=== PATIENT | male | born 1985 | race Caucasian/White ===

== ENCOUNTER 2023-09-27 06:35 | Inpatient (IN) | payer OTHER, MEDICAID ==
--- NOTE | 2023-09-27 06:46 | ED ---
General Adult HPI - General Source: patient, RN notes reviewed Mode of arrival: ambulatory Limitations: no limitations <Jimenez Prince - Last Filed: 09/27/23 06:45> - General Source: patient, RN notes reviewed, old records reviewed <Kenneth Powell - Last Filed: 09/27/23 15:09> - General Stated complaint: anxity nausea Time Seen by Provider: 09/27/23 06:46 - History of Present Illness Initial comments: 38-year-old male presents emergency Department chief complaint severe anxiety, nausea vomiting. Patient states he has not been able to hold anything down the last couple days. Patient states he feels dehydrated. Patient does have a history of anxiety. Denies any suicidal or homicidal. (Jimenez Prince) Patient is a 38-year-old male who originally presented as a quick note. Presents with anxiety, nausea and vomiting over the last few days. States when his anxiety is bad, he does have severe nausea and vomiting. Also endorses nonspecific suicidal ideations without any plans or attempts. Denies homicidal ideations, plans, attempts. Denies any visual or auditory hallucinations. No acute complaints at this time. Presents for further evaluation at this time. (Kenneth Powell) - Related Data Home Medications Medication Instructions Recorded Confirmed ALPRAZolam [Xanax] 0.25 mg PO TID PRN 09/27/23 09/27/23 Sertraline [Zoloft] 50 mg PO HS 09/27/23 09/27/23 Sertraline [Zoloft] 100 mg PO HS 09/27/23 09/27/23 traZODone HCL 150 mg PO HS 09/27/23 09/27/23 Allergies Allergy/AdvReac Type Severity Reaction Status Date / Time amoxicillin Allergy Rash/Hives Verified 09/27/23 12:08 bupropion [From Wellbutrin] AdvReac increased Verified 09/27/23 12:08 anxiety & suicidal ideations. Review of Systems ROS Other: All systems not noted in ROS Statement are negative. <Jimenez Prince - Last Filed: 09/27/23 06:45> ROS Other: All systems not noted in ROS Statement are negative. <Kenneth Powell - Last Filed: 09/27/23 15:09> ROS Statement: Those systems with pertinent positive or pertinent negative responses have been documented in the HPI. Review of Systems: CONST: Denies fever EYES: Denies blurry vision ENT: Denies nasal congestion C/V: Denies Chest pain RESP: Denies shortness of breath GI: Denies abdominal pain : Denies dysuria SKIN: Denies rash. MSK: Denies joint pain. NEURO: Denies headache PSYCH: Denies homicidal ideations/plans/attempts. Denies visual or auditory hallucinations. He endorses suicidal ideation. Denies plan or attempt. ([facility] Kenneth mckenzie) General Exam <Jimenez Prince - Last Filed: 09/27/23 06:45> <Kenneth Powell - Last Filed: 09/27/23 15:09> - General Exam Comments Initial Comments: Visual Physical Exam Vital signs reviewed General: Well-appearing, nontoxic, no acute distress. Head: Normocephalic, atraumatic Eyes: PERRLA, EOMI ENT: Airway patent Chest: Nonlabored breathing Skin: No visual rash, normal skin tone Neuro: Alert and oriented 3 Musculoskeletal: No gross abnormalities (Jimenez Prince) General: Appears in no acute distress. HEAD: Normal with no signs of head trauma. EYES: PERRLA, EOMI, conjunctiva normal, no discharge. ENT: Hearing grossly intact, normal oropharynx. Dry mucous membranes. RESPIRATORY: Clear breath sounds bilaterally. No wheezes, rales, or rhonchi. C/V: Regular rate and rhythm. S1 and S2 auscultated, no edema, peripheral pulses 2+ and intact throughout ABD: Abd is soft, nontender, nondistended EXT: Normal range of motion, no obvious deformity SKIN: No rashes or lesions observed on exposed skin. NEURO: Alert and oriented x 4. (Kenneth Powell) Course Vital Signs 09/27/23 09/27/23 07:35 11:38 Temperature 97.7 F 98.7 F Pulse Rate 89 113 H Respiratory 18 20 Rate Blood Pressure 138/92 141/101 O2 Sat by Pulse 98 97 Oximetry Medical Decision Making <Jimenez Prince - Last Filed: 09/27/23 06:45> - Lab Data Result diagrams: 09/27/23 11:40 09/27/23 11:40 <Kenneth Powell - Last Filed: 09/27/23 15:09> - Medical Decision Making I completed the quick note portion of this chart signed Jimenez Prince PA-C (Jimenez Prince) Was pt. sent in by a medical professional or institution ([facility], COLLEGE ARCHIVIST, urgent care, hospital, or usp...) When possible be specific @ -No Did you speak to anyone other than the patient for history (EMS, parent, family, police, friend...)? What history was obtained from this source @ -No Did you review nursing and triage notes (agree or disagree)? Why? @ -I reviewed and agree with nursing and triage notes, and agree except for the fact that patient is now stating he has had been having suicidal ideations. Were old charts reviewed (outside hosp., previous admission, EMS record, old EKG, old radiological studies, urgent care reports/EKG's, usp records)? Report findings @ -No old charts were reviewed Differential Diagnosis (chest pain, altered mental status, abdominal pain women, abdominal pain men, vaginal bleeding, weakness, fever, dyspnea, syncope, headache, dizziness, GI bleed, back pain, seizure, CVA, palpatations, mental health, musculoskeletal)? @ -Differential Mental Health Depression, anxiety, bipolar, psychosis, schizophrenia, borderline personality, situational depression, adjustment disorder, behavioral disorder, brain tumor, malingering, substance abuse, encephalopathy, medication reaction, dementia, hypothyroidism, degenerative neurologic disorder, lupus.... This is not meant to be all-inclusive list EKG interpreted by me (3pts min.). @ -None done X-rays interpreted by me (1pt min.). @ -None done CT interpreted by me (1pt min.). @ -None done U/S interpreted by me (1pt. min.). @ -None done What testing was considered but not performed or refused? (CT, X-rays, U/S, labs)? Why? @ -None What meds were considered but not given or refused? Why? @ -None Did you discuss the management of the patient with other professionals (professionals i.e. [facility] Morales, COLLEGE ARCHIVIST, lab, RT, psych nurse, social work specialist, construction site manager, teacher, chief resource officer, supervisor case loading)? Give summary @ -No Was smoking cessation discussed for >3mins.? @ -No Was critical care preformed (if so, how long)? @ -No Were there social determinants of health that impacted care today? How? (Homelessness, low income, unemployed, alcoholism, drug addiction, transportation, low edu. Level, literacy, decrease access to med. care, [facility], rehab)? @ -No Was there de-escalation of care discussed even if they declined (Discuss DNR or withdrawal of care, Hospice)? DNR status @ -No What co-morbidities impacted this encounter? (DM, HTN, Smoking, COPD, CAD, Cancer, CVA, ARF, Chemo, Hep., AIDS, mental health diagnosis, sleep apnea, morbid obesity)? @ -None Was patient admitted / discharged? Hospital course, mention meds given and route, prescriptions, significant lab abnormalities, going to OR and other pertinent info. @ -Based on the patient's presentation and physical exam, presents with anxiety and multiple episodes of nausea and vomiting. We'll obtain basic labs. Patient was placed in green scrubs due to suicidal ideations. Sitter was ordered. Patient was administered IV Zofran, fluids, Ativan. Vital signs within acceptable limits. Patient's labs are relatively nonspecific, dehydration. Positive marijuana and UDS. BAT is 0. At this time, patient is medically cleared for evaluation by psychiatry. Disposition is pending psychiatric evaluation. EPS was notified. Discussed with the by mouth some patient will be admitted to inpatient psychiatry. Undiagnosed new problem with uncertain prognosis? @ -No Drug Therapy requiring intensive monitoring for toxicity (Heparin, Nitro, Insulin, Cardizem)? @ -No Were any procedures done? @ -No Diagnosis/symptom? @ -Anxiety, suicidal ideation, nausea and vomiting Acute, or Chronic, or Acute on Chronic? @ -Acute Uncomplicated (without systemic symptoms) or Complicated (systemic symptoms)? @ -complicated Side effects of treatment? @ -No Exacerbation, Progression, or Severe Exacerbation? @ -No Poses a threat to life or bodily function? How? (Chest pain, [place], [place], pneumonia, PE, COPD, DKA, ARF, appy, cholecystitis, CVA, Diverticulitis, Homicidal, Suicidal, threat to staff... and all critical care pts) @ -Yes, secondary to the suicidal ideations. (Kenneth Powell) - Lab Data Lab Results 09/27/23 09/27/23 09/27/23 Range/Units 07:39 11:40 11:40 WBC 13.2 H (3.8-10.6) k/uL RBC 5.88 (4.30-5.90) m/uL Hgb 17.8 H (13.0-17.5) gm/dL Hct 51.6 (39.0-53.0) % MCV 87.8 (80.0-100.0) fL MCH 30.4 (25.0-35.0) pg MCHC 34.6 (31.0-37.0) g/dL RDW 12.1 (11.5-15.5) % Plt Count 409 (150-450) k/uL MPV 6.9 Neutrophils % 84 % Lymphocytes % 9 % Monocytes % 5 % Eosinophils % 0 % Basophils % 1 % Neutrophils # 11.1 H (1.3-7.7) k/uL Lymphocytes # 1.1 (1.0-4.8) k/uL Monocytes # 0.7 (0-1.0) k/uL Eosinophils # 0.1 (0-0.7) k/uL Basophils # 0.1 (0-0.2) k/uL Sodium 141 (137-145) mmol/L Potassium 4.1 (3.5-5.1) mmol/L Chloride 102 (98-107) mmol/L Carbon Dioxide 17 L (22-30) mmol/L Anion Gap 22 mmol/L BUN 15 (9-20) mg/dL Creatinine 0.86 (0.66-1.25) mg/dL Est GFR (CKD-EPI)AfAm >90 (>60 ml/min/1.73 sqM) Est GFR (CKD-EPI)NonAf >90 (>60 ml/min/1.73 sqM) Glucose 91 (74-99) mg/dL Calcium 10.1 (8.4-10.2) mg/dL Urine Opiates Screen (NotDetected) Ur Oxycodone Screen (NotDetected) Urine Methadone Screen (NotDetected) Ur Barbiturates Screen (NotDetected) U Tricyclic Antidepress (NotDetected) Ur Phencyclidine Scrn (NotDetected) Ur Amphetamines Screen (NotDetected) U Methamphetamines Scrn (NotDetected) U Benzodiazepines Scrn (NotDetected) Urine Cocaine Screen (NotDetected) U Marijuana (THC) Screen (NotDetected) Influenza Type A (PCR) Not Detected (Not Detectd) Influenza Type B (PCR) Not Detected (Not Detectd) RSV (PCR) Not Detected (Not Detectd) SARS-CoV-2 (PCR) Not Detected (Not Detectd) 09/27/23 Range/Units 13:28 WBC (3.8-10.6) k/uL RBC (4.30-5.90) m/uL Hgb (13.0-17.5) gm/dL Hct (39.0-53.0) % MCV (80.0-100.0) fL MCH (25.0-35.0) pg MCHC (31.0-37.0) g/dL RDW (11.5-15.5) % Plt Count (150-450) k/uL MPV Neutrophils % % Lymphocytes % % Monocytes % % Eosinophils % % Basophils % % Neutrophils # (1.3-7.7) k/uL Lymphocytes # (1.0-4.8) k/uL Monocytes # (0-1.0) k/uL Eosinophils # (0-0.7) k/uL Basophils # (0-0.2) k/uL Sodium (137-145) mmol/L Potassium (3.5-5.1) mmol/L Chloride (98-107) mmol/L Carbon Dioxide (22-30) mmol/L Anion Gap mmol/L BUN (9-20) mg/dL Creatinine (0.66-1.25) mg/dL Est GFR (CKD-EPI)AfAm (>60 ml/min/1.73 sqM) Est GFR (CKD-EPI)NonAf (>60 ml/min/1.73 sqM) Glucose (74-99) mg/dL Calcium (8.4-10.2) mg/dL Urine Opiates Screen Not Detected (NotDetected) Ur Oxycodone Screen Not Detected (NotDetected) Urine Methadone Screen Not Detected (NotDetected) Ur Barbiturates Screen Not Detected (NotDetected) U Tricyclic Antidepress Not Detected (NotDetected) Ur Phencyclidine Scrn Not Detected (NotDetected) Ur Amphetamines Screen Not Detected (NotDetected) U Methamphetamines Scrn Not Detected (NotDetected) U Benzodiazepines Scrn Not Detected (NotDetected) Urine Cocaine Screen Not Detected (NotDetected) U Marijuana (THC) Screen Detected H (NotDetected) Influenza Type A (PCR) (Not Detectd) Influenza Type B (PCR) (Not Detectd) RSV (PCR) (Not Detectd) SARS-CoV-2 (PCR) (Not Detectd) Disposition <Jimenez Prince - Last Filed: 09/27/23 06:45> <Kenneth Powell - Last Filed: 09/27/23 15:09> Clinical Impression: Suicidal ideations, Anxiety, Nausea and vomiting Disposition: ADMITTED IP TO THIS HOSP Condition: Stable
[2023-09-27] MEDS ORDERED: LORazepam 2 MG/ML INJ IV STA (11:45)
[2023-09-27 11:54] LABS: Basophils # (A) 0.1 k/uL (0-0.2); Basophils % (A) 1 %; Eosinophils # (A) 0.1 k/uL (0-0.7); Eosinophils % (A) 0 %; HCT 51.6 % (39.0-53.0); HGB 17.8 gm/dL (13.0-17.5); Lymphocytes # (A) 1.1 k/uL (1.0-4.8); Lymphocytes % (A) 9 %; MCH 30.4 pg (25.0-35.0); MCHC 34.6 g/dL (31.0-37.0); MCV 87.8 fL (80.0-100.0); Mean Platelet Volume 6.9; Monocytes # (A) 0.7 k/uL (0-1.0); Monocytes % (A) 5 %; Neutrophils # (A) 11.1 k/uL (1.3-7.7); Neutrophils % (A) 84 %; Platelet Count 409 k/uL (150-450); RBC 5.88 m/uL (4.30-5.90); RDW 12.1 % (11.5-15.5); WBC 13.2 k/uL (3.8-10.6)
[2023-09-27 12:09] LABS: African American GFR (CKD) >90 (>60 ml/min/1.73 sqM); Anion Gap 22 mmol/L; Blood Urea Nitrogen 15 mg/dL (9-20); Calcium 10.1 mg/dL (8.4-10.2); Carbon Dioxide 17 mmol/L (22-30); Chloride 102 mmol/L (98-107); Glucose 91 mg/dL (74-99); Non-African American GFR(CKD) >90 (>60 ml/min/1.73 sqM); Potassium 4.1 mmol/L (3.5-5.1); Sodium 141 mmol/L (137-145)
[2023-09-27] MEDS ORDERED: ONDANSETRON 4 MG/2 ML VIAL IVP STA (13:28)
[2023-09-27] MEDS ORDERED: SODIUM CHLORIDE 0.9% 1,000 ML IV STA (13:28)
[2023-09-27 13:53] LABS: Amphetamine Screen,Urine Not Detected (NotDetected); Barbiturate Screen,Urine Not Detected (NotDetected); Benzodiazepines Screen,Urine Not Detected (NotDetected); Cocaine Screen,Urine Not Detected (NotDetected); Methadone Screen, Urine Not Detected (NotDetected); Opiate Screen,Urine Not Detected (NotDetected); Oxycodone Screen, Urine Not Detected (NotDetected); Phencyclidine Screen,Urine Not Detected (NotDetected); Tricyclic Antidepressant,Urine Not Detected (NotDetected); Urn Cannabinoid Scrn Detected (NotDetected)
[2023-09-27] MEDS ORDERED: MAGNESIUM HYDROXIDE 2,400 MG/30 ML CUP PO PRN (15:51)
[2023-09-27] MEDS ORDERED: MAG HYDROX/AL HYDROX/SIMETH 30 ML CUP PO PRN (15:51)
[2023-09-27] MEDS ORDERED: ACETAMINOPHEN TAB 325 MG TAB PO PRN (15:51)
[2023-09-27] MEDS ORDERED: HALOPERIDOL LACTATE 5 MG/ML 1 ML VIAL IM PRN (15:53)
[2023-09-27] MEDS ORDERED: haloperidoL 5 MG TAB PO PRN (15:53)
[2023-09-27] MEDS ORDERED: LORazepam 2 MG/ML INJ IM PRN (15:53)
[2023-09-27] MEDS: LORazepam 1 MG TAB PO PRN (17:19)
[2023-09-27] MEDS: SERTRALINE 100 MG TAB PO SCH (20:38)
[2023-09-27] MEDS: traZODone HCL 100 MG TAB PO SCH (20:38)
[2023-09-27] MEDS: SERTRALINE 50 MG TAB PO SCH (20:38)
[2023-09-28 03:19] LABS: Appearance,Urine Clear (Clear); Bilirubin,Urine Negative (Negative); Blood,Urine Negative (Negative); Color,Urine Yellow; Glucose,Urine (UA) Negative (Negative); Ketones,Urine 4+ (Negative); Leukocyte Esterase,Urine Negative (Negative); Mucus,Urine Many /hpf; Nitrite,Urine Negative (Negative); PH, Urine 5.5 (5.0-8.0); Protein,Urine 1+ (Negative); RBC,Urine 1 /hpf (0-5); Specific Gravity,Urine 1.042 (1.001-1.035); Uric Acid Crystals,Urine Few /hpf; Urobilinogen,Urine <2.0 mg/dL (<2.0); WBC,Urine 3 /hpf (0-5)
[2023-09-28] MEDS ORDERED: ALBUTEROL INHALER 60 PUFF/8 GM INHALER (MHU) INHALATION PRN (04:26)
--- NOTE | 2023-09-28 04:26 | P.MDCNMH ---
History of Present Illness H&P Date: 09/28/23 Chief Complaint: medical eval 38 year old male coming in for evaluation of anxiety, nausea and vomiting, he reports one episode of diarrhea , but denies any abd pain fever, known sick contacts, GI bleeding. he feels better now , and his symptoms has not happened again. he is tolerating po intake . he admits to suicidal ideation, but no active plan, but he is feeling better now and not suicidal any more he denies any fever, chills, cough, sore throat, chest pain , trouble breathing , abd pain , changes in urinary or bowel habits. review of systems Pertinent positives as noted in HPI. All other systems were reviewed and are negative on exam Constitutional: No acute distress Eyes: Anicteric sclerae, moist conjunctiva, Pupils equal round reactive to light ENMT: NC/AT Oropharynx clear, no erythema, or exudates Lungs: Clear to auscultation Clear to percussion Normal respiratory effort, no accessory muscle use Cardiovascular: Heart regular in rate and rhythm, No murmurs, gallops, or rubs No peripheral edema Abdominal: Soft Nontender, no guarding, rebound or rigidity Abdomen moving with respiration Normoactive bowel sounds Extremities: No digital cyanosis No clubbing Pedal pulses intact and symmetrical Radial pulses intact and symmetrical No calf tenderness Psychiatric: Alert and oriented to person, place and time Neuro Muscles Strength 5/5 in all 4 extremities Past Medical History Past Medical History: Asthma History of Any Multi-Drug Resistant Organisms: None Reported Additional Past Surgical History / Comment(s): left knee surgery Past Anesthesia/Blood Transfusion Reactions: No Reported Reaction Past Psychological History: Anxiety, Depression Smoking Status: Never smoker Past Alcohol Use History: None Reported Past Drug Use History: Marijuana Medications and Allergies Home Medications Medication Instructions Recorded Confirmed Type ALPRAZolam [Xanax] 0.25 mg PO TID PRN 09/27/23 09/27/23 History Sertraline [Zoloft] 50 mg PO HS 09/27/23 09/27/23 History Sertraline [Zoloft] 100 mg PO HS 09/27/23 09/27/23 History traZODone HCL 150 mg PO HS 09/27/23 09/27/23 History Allergies Allergy/AdvReac Type Severity Reaction Status Date / Time amoxicillin Allergy Rash/Hives Verified 09/27/23 12:08 bupropion [From Wellbutrin] AdvReac increased Verified 09/27/23 12:08 anxiety & suicidal ideations. Physical Exam Vitals: Vital Signs Temp Pulse Pulse Resp BP BP Pulse Ox 09/27/23 16:56 97.9 F 104 H 20 134/92 09/27/23 11:38 98.7 F 113 H 20 141/101 97 09/27/23 07:35 97.7 F 89 18 138/92 98 Intake and Output 09/27/23 09/27/23 09/28/23 14:59 22:59 06:59 Other: Weight 90.718 kg 88.054 kg Cranial Nerve Examination - Cranial Nerves Cranial Nerve II- Optic: Intact Cranial Nerve III- Oculomotor: Intact Cranial Nerve IV- Trochlear: Intact Cranial Nerve V- Trigeminal: Intact Cranial Nerve - Abducens: Intact Cranial Nerve VII- Facial: Intact Cranial Nerve VIII- Auditory: Intact Cranial Nerve IX- Glossopharyngeal: Intact Cranial Nerve X- Vagus: Intact Cranial Nerve XI- Accessory: Intact Cranial Nerve XII- Hypoglossal: Intact Results CBC & Chem 7: 09/27/23 11:40 09/27/23 11:40 Labs: Abnormal Lab Results - Last 24 Hours (Table) 09/27/23 09/27/23 09/27/23 Range/Units 11:40 11:40 13:28 WBC 13.2 H (3.8-10.6) k/uL Hgb 17.8 H (13.0-17.5) gm/dL Neutrophils # 11.1 H (1.3-7.7) k/uL Carbon Dioxide 17 L (22-30) mmol/L Ur Specific [place] (1.001-1.035) Urine Protein (Negative) Urine Ketones (Negative) Uric Acid Crystals (None) /hpf Urine Mucus (None) /hpf U Marijuana (THC) Screen Detected H (NotDetected) 09/27/23 Range/Units 15:51 WBC (3.8-10.6) k/uL Hgb (13.0-17.5) gm/dL Neutrophils # (1.3-7.7) k/uL Carbon Dioxide (22-30) mmol/L Ur Specific [place] 1.042 H (1.001-1.035) Urine Protein 1+ H (Negative) Urine Ketones 4+ H (Negative) Uric Acid Crystals Few H (None) /hpf Urine Mucus Many H (None) /hpf U Marijuana (THC) Screen (NotDetected) Assessment and Plan Assessment: depression and suicidal ideation management per psych intermittent asthma albuterol rescue inhaler when needed wbc 13 hgb 17 na 141, K 4.1 BUN 15 cr 0.86 urine drug screen positive marijuana acute respiratoroy viral panel negative for covid influenza and RSV stable from medical stand point thank you for this consultation
[2023-09-28] MEDS: LORazepam 1 MG TAB PO PRN (06:46)
[2023-09-28] MEDS ORDERED: NICOTINE 14MG/24HR PATCH TRANSDERM SCH (09:00)
--- NOTE | 2023-09-28 11:42 | P.HP ---
Psychiatric H&P - . H&P Date: 09/28/23 History & Physical: Allergies Allergy/AdvReac Type Severity Reaction Status Date / Time amoxicillin Allergy Rash/Hives Verified 09/27/23 12:08 bupropion [From Wellbutrin] AdvReac increased Verified 09/27/23 12:08 anxiety & suicidal ideations. Vital Signs Temp 98.5 F 09/28/23 06:55 Pulse 99 09/28/23 06:55 Resp 16 09/28/23 06:55 BP 133/93 09/28/23 06:55 Pulse Ox 97 09/27/23 11:38 FiO2 Intake & Output 09/27/23 09/28/23 09/28/23 18:59 06:59 18:59 Weight 88.054 kg Laboratory Last Values WBC 13.2 k/uL (3.8-10.6) H 09/27/23 11:40 RBC 5.88 m/uL (4.30-5.90) 09/27/23 11:40 Hgb 17.8 gm/dL (13.0-17.5) H 09/27/23 11:40 Hct 51.6 % (39.0-53.0) 09/27/23 11:40 MCV 87.8 fL (80.0-100.0) 09/27/23 11:40 MCH 30.4 pg (25.0-35.0) 09/27/23 11:40 MCHC 34.6 g/dL (31.0-37.0) 09/27/23 11:40 RDW 12.1 % (11.5-15.5) 09/27/23 11:40 Plt Count 409 k/uL (150-450) 09/27/23 11:40 MPV 6.9 09/27/23 11:40 Neutrophils % 84 % 09/27/23 11:40 Lymphocytes % 9 % 09/27/23 11:40 Monocytes % 5 % 09/27/23 11:40 Eosinophils % 0 % 09/27/23 11:40 Basophils % 1 % 09/27/23 11:40 Neutrophils # 11.1 k/uL (1.3-7.7) H 09/27/23 11:40 Lymphocytes # 1.1 k/uL (1.0-4.8) 09/27/23 11:40 Monocytes # 0.7 k/uL (0-1.0) 09/27/23 11:40 Eosinophils # 0.1 k/uL (0-0.7) 09/27/23 11:40 Basophils # 0.1 k/uL (0-0.2) 09/27/23 11:40 Sodium 141 mmol/L (137-145) 09/27/23 11:40 Potassium 4.1 mmol/L (3.5-5.1) 09/27/23 11:40 Chloride 102 mmol/L (98-107) 09/27/23 11:40 Carbon Dioxide 17 mmol/L (22-30) L 09/27/23 11:40 Anion Gap 22 mmol/L 09/27/23 11:40 BUN 15 mg/dL (9-20) 09/27/23 11:40 Creatinine 0.86 mg/dL (0.66-1.25) 09/27/23 11:40 Est GFR (CKD-EPI)AfAm >90 (>60 ml/min/1.73 sqM) 09/27/23 11:40 Est GFR (CKD-EPI)NonAf >90 (>60 ml/min/1.73 sqM) 09/27/23 11:40 Glucose 91 mg/dL (74-99) 09/27/23 11:[address] Glu mg/dL 111 mg/dL 09/27/23 11:40 Hemoglobin A1c 5.5 % (<=6.0) 09/27/23 11:40 Calcium 10.1 mg/dL (8.4-10.2) 09/27/23 11:40 TSH 0.338 mIU/L (0.465-4.680) L 09/27/23 11:40 Urine Color Yellow 09/27/23 15:51 Urine Appearance Clear (Clear) 09/27/23 15:51 Urine pH 5.5 (5.0-8.0) 09/27/23 15:51 Ur Specific [employer] 1.042 (1.001-1.035) H 09/27/23 15:51 Urine Protein 1+ (Negative) H 09/27/23 15:51 Urine Glucose (UA) Negative (Negative) 09/27/23 15:51 Urine Ketones 4+ (Negative) H 09/27/23 15:51 Urine Blood Negative (Negative) 09/27/23 15:51 Urine Nitrite Negative (Negative) 09/27/23 15:51 Urine Bilirubin Negative (Negative) 09/27/23 15:51 Urine Urobilinogen <2.0 mg/dL (<2.0) 09/27/23 15:51 Ur Leukocyte Esterase Negative (Negative) 09/27/23 15:51 Urine RBC 1 /hpf (0-5) 09/27/23 15:51 Urine WBC 3 /hpf (0-5) 09/27/23 15:51 Uric Acid Crystals Few /hpf (None) H 09/27/23 15:51 Urine Mucus Many /hpf (None) H 09/27/23 15:51 Urine Opiates Screen Not Detected (NotDetected) 09/27/23 13:28 Ur Oxycodone Screen Not Detected (NotDetected) 09/27/23 13:28 Urine Methadone Screen Not Detected (NotDetected) 09/27/23 13:28 Ur Barbiturates Screen Not Detected (NotDetected) 09/27/23 13:28 U Tricyclic Antidepress Not Detected (NotDetected) 09/27/23 13:28 Ur Phencyclidine Scrn Not Detected (NotDetected) 09/27/23 13:28 Ur Amphetamines Screen Not Detected (NotDetected) 09/27/23 13:28 U Methamphetamines Scrn Not Detected (NotDetected) 09/27/23 13:28 U Benzodiazepines Scrn Not Detected (NotDetected) 09/27/23 13:28 Urine Cocaine Screen Not Detected (NotDetected) 09/27/23 13:28 U Marijuana (THC) Screen Detected (NotDetected) H 09/27/23 13:28 Influenza Type A (PCR) Not Detected (Not Detectd) 09/27/23 07:39 Influenza Type B (PCR) Not Detected (Not Detectd) 09/27/23 07:39 RSV (PCR) Not Detected (Not Detectd) 09/27/23 07:39 SARS-CoV-2 (PCR) Not Detected (Not Detectd) 09/27/23 07:39 09/28/23 11:32 This is a psychiatric assessment on Elio Torres who is a 38-year-old male with history of depressive disorder Patient reports that he has issues with chronic anxiety and that recently his PCP started him on Wellbutrin which given a bad reaction he states that he became very agitated and anxious and suicidal He says that he has thoughts of wanting to hang himself Patient had a similar episode where he wanted to hang himself about 2 years ago Patient did not reveal the any other triggers but the staff reports that the patient had admitted that he had a argument with his ex- regarding visitations with her 3 children over the holidays which triggered his current episode Patient reports that he has chronic issues with anxiety and that his current medications does not seem to hold them well He also takes Zoloft 100 mg a day He says that he smokes cannabis on a daily basis but otherwise denies use any other drugs He also stated that he takes Xanax 0.25 mg when necessary 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 He states that there is a family history of anxiety Past history personal and social history Patient remains somewhat vague and not very forthcoming As mentioned above the patient has been before and has 3 children from his previous relationship His current also has 2 children one of whom still lives in their house Patient reports that he has history children visit him over the holidays and weekends He reports that he has had some therapy in the past but has not followed up consistently He denies seeing a psychiatrist in the past Mental status examination: General Appearance: Patient appears stated age is cooperative. Patient was hearing the hospital gown Behavior: Patient is ambulating and was seen in his room He was cooperative Speech: Patient's speech is fluent and nonpressured. Mood/Affect: Patient reports their mood is sad, Suicidality/Homicidality: Patient denies having any homicidal ideation intent or plan. Denies any suicidal ideations intent or plan Perceptions: Patient denies any visual hallucinations and denies any auditory hallucinations Though content/process: more goal oriented. Goal-directed sequential and logical Memory and concentration: Alert and oriented 3, fair attention span. Judgment and insight: Impaired an impaired Impression: Adjustment disorder with mixed emotional features Mood disorder unspecified Anxiety disorder unspecified Cannabis use disorder unspecified Personality disorder with borderline traits Relationship problems Formulation and plan: This is a 38-year-old male with history of mood disorder and anxiety disorder Patient also uses cannabis on a regular basis which may be contributing to his anxiety Patient also exhibits borderline personality traits with his current hospitalization has been triggered after interpersonal conflicts with his ex- and threats of suicide with hanging himself Patient has had similar episode in the past Patient has not followed through on any recommendations from the previous such behaviors Plan: The patient will be hospital is only in for further evaluation and treatment Therapy will be focused on Providing supportive care improving his coping abilities with a multimodal treatment Patient will also participate in on the [place] activities Individual milieu group OT RT PT and pharmacotherapy Approximately length of stay would be 4-7 days Medications: Patient will be continued on Zoloft 100 mg daily as prescribed 2 will also start the patient on gabapentin starting at 300 mg 3 times a day to start within titrated to response Patient was briefed on the effects and side effects of the medication which she appears to understand well Patient currently denies any suicidal or homicidal ideations although we'll continue close observation due to his impulsivity and borderline personality and maintain every 15 minute checks Encouraged to parts been on the [place] activities and improving his coping skills and assertiveness training Patient would be a good candidate for referral to CBT and DBT program after discharge Patient will return back to his previous home living with the family and social security benefits interviewer will be involved to maintain family contacts as well as to help gather other collateral information Mitchell Etienne M.D.
[2023-09-28] MEDS: GABAPENTIN 300 MG CAP PO SCH ×2 (16:39→20:53)
[2023-09-28] MEDS: SERTRALINE 50 MG TAB PO SCH (20:53)
[2023-09-28] MEDS: traZODone HCL 100 MG TAB PO SCH (20:53)
[2023-09-28] MEDS: SERTRALINE 100 MG TAB PO SCH (20:53)
[2023-09-29] MEDS ORDERED: ONDANSETRON ODT 4 MG TAB PO STA (04:04)
[2023-09-29] MEDS: LORazepam 1 MG TAB PO PRN ×2 (05:46→17:34)
[2023-09-29] MEDS: GABAPENTIN 300 MG CAP PO SCH ×3 (08:59→22:12)
--- NOTE | 2023-09-29 10:09 | P.PN ---
Subjective Progress Note Date: 09/29/23 Principal diagnosis: Impression: Adjustment disorder with mixed emotional features Mood disorder unspecified Anxiety disorder unspecified Cannabis use disorder unspecified Personality disorder with borderline traits Relationship problems Patient Name: Elio Torres Date of : 87 Patient Status: Inpatient Attending Provider: Dewayne Perez Date: 09/29/23 09/29/23 The patient was seen, chart was reviewed and case discussed with the nursing staff Patient reports that he continues to feel anxious Patient is unable to give any specific reason for his anxiety A further discusses issues with not being able to face the problems Patient was reminded about the presentation where he had problems in arranging for appropriate visitations with his children and that he has difficulty in communicating with his ex- She reports that she does not seem to have much trouble communicating with him but that he seems to have trouble being assertive or make decisions We discussed his tendency to resort to self abusive behavior or suicidal thoughts with feeling overwhelmed He was also advised about the benefits of adding into counseling specially with CBT and DBT and his diagnoses of borderline personality disorder was discussed Mental status examination: General Appearance: Patient appears stated age is cooperative. Patient was sitting up in bed and was wide awake Behavior: She was seen in his room He was cooperative Speech: Patient's speech is fluent and nonpressured. Mood/Affect: Patient reports their mood is sad, and anxious Suicidality/Homicidality: Patient denies having any homicidal ideation intent or plan. Denies any suicidal ideations intent or plan Perceptions: Patient denies any visual hallucinations and denies any auditory hallucinations Though content/process: more goal oriented. Goal-directed sequential and logical Patient however remains oblivious to his triggers and source of anxiety Memory and concentration: Alert and oriented 3, fair attention span. Judgment and insight: Impaired an impaired Impression: Adjustment disorder with mixed emotional features Mood disorder unspecified Anxiety disorder unspecified Cannabis use disorder unspecified Personality disorder with borderline traits Relationship problems Formulation and plan: This is a 38-year-old male with history of mood disorder and anxiety disorder Patient also uses cannabis on a regular basis which may be contributing to his anxiety Patient also exhibits borderline personality traits with his current hospitalization has been triggered after interpersonal conflicts with his ex- and threats of suicide with hanging himself Patient has had similar episode in the past Patient has not followed through on any recommendations from the previous such behaviors Plan: The patient will be hospital is only in for further evaluation and treatment Therapy will be focused on Providing supportive care improving his coping abilities with a multimodal treatment Patient will also participate in on the [facility] activities Individual milieu group OT RT PT and pharmacotherapy Further discussed patient's borderline personality disorder and need for ongoing treatment with CBT and DBT Approximately length of stay would be 4-7 days Medications: Patient will be continued on Zoloft 100 mg daily as prescribed 2 will also start the patient on gabapentin starting at 300 mg 3 times a day to start within titrated to response Patient was briefed on the effects and side effects of the medication which she appears to understand well Patient currently denies any suicidal or homicidal ideations although we'll continue close observation due to his impulsivity and borderline personality and maintain every 15 minute checks Encouraged to parts been on the [facility] activities and improving his coping skills and assertiveness training Patient would be a good candidate for referral to CBT and DBT program after disc harge Patient will return back to his previous home living with the family and social security benefits interviewer will be involved to maintain family contacts as well as to help gather other collateral information Mitchell Jaimie Salazar Objective - Vital Signs Vital signs: Vital Signs Temp 98.2 F 09/29/23 07:09 Pulse 104 H 09/29/23 07:09 Resp 16 09/29/23 07:09 BP 141/80 09/29/23 07:09 Pulse Ox 97 09/27/23 11:38 FiO2 - Labs CBC & Chem 7: 09/27/23 11:40 09/27/23 11:40
[2023-09-29] MEDS: SERTRALINE 100 MG TAB PO SCH (22:12)
[2023-09-29] MEDS: SERTRALINE 50 MG TAB PO SCH (22:13)
[2023-09-29] MEDS: traZODone HCL 100 MG TAB PO SCH (22:13)
[2023-09-30] MEDS: LORazepam 1 MG TAB PO PRN (06:58)
[2023-09-30] MEDS: GABAPENTIN 300 MG CAP PO SCH ×3 (08:53→21:01)
--- NOTE | 2023-09-30 19:54 | P.PN ---
Progress Note - Text Progress Note Date: 09/30/23 Interval history: [facility] with peers and was directable and agreeable to speak with script writer. He reports high anxiety, rates his anxiety as improved from 10/10 on admission to 5/10 today, with racing thoughts and some irritability. He reports feeling more anxious in the mornings and gets nauseous, but also reports anxiety the rest of the day. He reports passive suicidal thoughts this morning, but denies active SI, intent or plan. At this time patient denies any homicidal ideation, intent or plan. Denies any auditory or visual hallucinations. Patient denies any side effects from the medications and has been compliant with meds. Mental status exam: General Appearance: Patient appears to be stated age, average hygiene, +tattoos. Behavior: No agitated behavior. Patient is directable, stands with arms folded due to anxiety. Speech: Patient's speech is fluent and non-pressured. Mood/Affect: Mood is anxious, affect is congruent and constricted. Suicidality/Homicidality: Patient denies having any active suicidal or homicidal ideation intent or plan. He reports passive suicidal thoughts this morning. Perceptions: Patient denies any auditory or visual hallucinations. Though content/process: There is no evidence of any delusional thought content and thought process is linear and goal-directed. Memory and concentration: AOX3, grossly intact for the purposes of this session Judgment and insight: Improving mildly Assessment/Plan: Continue with current diagnosis. Patient continues to meet criteria for inpatient psychiatric admission for symptom stabilization and safety. Start Seroquel 25 mg BID for mood. Monitor for drowsiness. Monitor for medication compliance and for any psychotropic medication side effects. Will continue to monitor ongoing response to treatment. Encouraged participation in milieu.
[2023-09-30] MEDS: SERTRALINE 50 MG TAB PO SCH (21:01)
[2023-09-30] MEDS: QUEtiapine 25 MG TAB PO SCH (21:01)
[2023-09-30] MEDS: traZODone HCL 100 MG TAB PO SCH (21:01)
[2023-09-30] MEDS: SERTRALINE 100 MG TAB PO SCH (21:01)
[2023-10-01] MEDS: GABAPENTIN 300 MG CAP PO SCH ×3 (08:54→23:00)
[2023-10-01] MEDS: QUEtiapine 25 MG TAB PO SCH (08:54)
[2023-10-01] MEDS: LORazepam 1 MG TAB PO PRN (09:21)
--- NOTE | 2023-10-01 15:19 | P.PN ---
Progress Note - Text Progress Note Date: 10/01/23 Interval history: Patient was found sleeping in his bed and was directable and agreeable to speak with television writer. He reports improved sleep last night from the Seroquel and reports he did not feel nauseous this morning on awakening, but reports he has been sleepy most of the day since taking the morning dose of Seroquel so we will discontinue the morning dose. He reports he still feels somewhat anxious during the day but this is improved. He denies any suicidal thoughts so far today. At this time patient denies any suicidal or homicidal ideation, intent or plan. Denies any auditory or visual hallucinations. Patient denies any side effects from the medications and has been compliant with meds. Mental status exam: General Appearance: Patient appears to be stated age, average hygiene, +tattoos. Behavior: No agitated behavior. Patient is directable, appears tired. Speech: Patient's speech is fluent and non-pressured. Mood/Affect: Mood is anxious but improved, affect is congruent and constricted. Suicidality/Homicidality: Patient denies having any suicidal or homicidal ideation intent or plan. Perceptions: Patient denies any auditory or visual hallucinations. Though content/process: There is no evidence of any delusional thought content and thought process is linear and goal-directed. Memory and concentration: AOX3, grossly intact for the purposes of this session Judgment and insight: Improving mildly Assessment/Plan: Continue with current diagnosis. Patient continues to meet criteria for inpatient psychiatric admission for symptom stabilization and safety. Decrease Seroquel 25 mg BID to 25 mg QHS for mood/sleep due to daytime sedation. Monitor for medication compliance and for any psychotropic medication side effects. Will continue to monitor ongoing response to treatment. Encouraged participation in milieu.
--- NOTE | 2023-10-01 15:56 | P.PN ---
Subjective Progress Note Date: 10/01/23 Patient is a 38 yo M with a hx of asthma and anxiety who is currently in the [facility] for mood disorder. Patient seen and examined. He is aware that his HR has been high and he felt it might be due to anxiety. He denies current palpitations, but does say that he can feel his heart race at night. + weight loss, + diarrhea, + nausea, + diaphoresis which the patient has attributed to anxiety. He denies any hx of thyroid problems and any family hx of thyroid issues Vital signs reviewed General: nontoxic, no distress, appears at stated age Cardiovascular: S1S2 reg, no murmur, positive posterior tibial pulse bilateral, Lungs: CTA bilateral, no rhonchi, no rales , no accessory muscle use Neuro: CN II-XI grossly intact, no focal neuro deficits, + mild tremor right hand Psych: Alert, oriented, blunted affect Assessment/Plan: Probable hyperthyroidism, mild - Start atenolol 25 mg PO daily - repeat thyroid labs as outpatient with PCP and thyroid ultrasound - May benefit from methamizole if hyperthydoisim is confirmed - Needs to be off all vitamins and supplements 72 hours before testing, as assay is biotinilated and biotin will make patient appear hyperthyroid. - please contact us again if you feel the patient would benefit from re- evaluation Data Review: TSH 0.338 and T4 2.98 Thank you for allowing us to participate in the care of this pleasant patient. Do not hesitate to contact us with questions. Someone can be reached from the [facility] hospitalist group all hours of the day at [phone] or via perfect serve.. This dictation was prepared using [employer] voice recognition software. Though every attempt is made to correct errors during dictation some may still exist. Objective - Vital Signs Vital signs: Vital Signs Temp 97.6 F 09/30/23 06:19 Pulse 123 H 10/01/23 14:08 Resp 14 10/01/23 14:08 BP 168/77 10/01/23 14:08 Pulse Ox 97 09/27/23 11:38 FiO2 - Labs CBC & Chem 7: 09/27/23 11:40 09/27/23 11:40
[2023-10-01] MEDS: atenoloL 25 MG TAB PO SCH (16:41)
[2023-10-01] MEDS ORDERED: QUEtiapine 25 MG TAB PO SCH (21:00)
[2023-10-01] MEDS: SERTRALINE 100 MG TAB PO SCH (22:54)
[2023-10-01] MEDS: traZODone HCL 100 MG TAB PO SCH (22:54)
[2023-10-01] MEDS: SERTRALINE 50 MG TAB PO SCH (22:54)
[2023-10-02] MEDS: LORazepam 1 MG TAB PO PRN (08:20)
[2023-10-02] MEDS: GABAPENTIN 300 MG CAP PO SCH (08:20)
[2023-10-02] MEDS ORDERED: hydrOXYzine pamoate 25 MG CAP PO PRN (11:10)
--- NOTE | 2023-10-02 11:15 | P.PN ---
Progress Note - Text Progress Note Date: 10/02/23 Interval history: Patient was found in the hallway and was directable and agreeable to speak with rfp writer. Patient states that his anxiety is improving, however, it's still there. Reports to having a bizarre nightmare, but did not elaborate. He offers no other complaints at this time. States that his appetite is good. Patient is focused on discharge. Reiterated to the patient that we have to get his symptoms of anxiety under control better, without benzodiazipines. Patient agreeable. At this time patient denies any suicidal or homicidal ideation, intent or plan. Denies any auditory or visual hallucinations. Patient denies any side effects from the medications and has been compliant with meds. Mental status exam: General Appearance: Patient appears to be stated age, average hygiene, +tattoos. Behavior: No agitated behavior. Patient is directable, Speech: Patient's speech is fluent and non-pressured. Mood/Affect: Mood is anxious but improved, affect is congruent and constricted. Suicidality/Homicidality: Patient denies having any suicidal or homicidal ideation intent or plan. Perceptions: Patient denies any auditory or visual hallucinations. Though content/process: There is no evidence of any delusional thought content and thought process is linear and goal-directed. Memory and concentration: AOX3, grossly intact for the purposes of this session Judgment and insight: Improving mildly Impression: Adjustment disorder with mixed emotional features Mood disorder unspecified Anxiety disorder unspecified Cannabis use disorder unspecified Personality disorder with borderline traits Relationship problems Assessment/Plan: Continue with current diagnosis. Patient continues to meet criteria for inpatient psychiatric admission for symptom stabilization and safety. d/c Seroquel Increase trazadone to 200mg qhs for sleep/anxiety. Increase zoloft to 200mg qhs for mood/anxiety add visteral 25 q6hous prn for anxiety. D/C neurotin Monitor for medication compliance and for any psychotropic medication side effects. Will continue to monitor ongoing response to treatment. Encouraged participation in milieu. possible discharge in 1-2 days.
[2023-10-02] MEDS: atenoloL 25 MG TAB PO SCH (13:14)
[2023-10-02] MEDS ORDERED: SERTRALINE 100 MG TAB PO SCH (21:00)
[2023-10-02] MEDS ORDERED: traZODone HCL 100 MG TAB PO SCH (21:00)
[2023-10-03 07:25] VITALS: TEMP 97.1
[2023-10-03] MEDS: atenoloL 25 MG TAB PO SCH (08:44)
[2023-10-03 09:03] VITALS: BP 129/91
[2023-10-03 09:50] VITALS: PULSE 80; RESP 16
--- NOTE | 2023-10-03 10:20 | P.DS ---
Providers Date of admission: 09/27/23 15:01 Expected date of discharge: 10/03/23 Attending physician: Dewayne Perez MD Consults: 09/27/23 15:51 Consult Physician Routine Consulting Provider: Manuel Physician Consult Reason/Comments: H&P Do you want consulting provider notified?: Yes Primary care physician: Suleiman Namei - Discharge Diagnosis(es) (1) Adjustment disorder with mixed emotional features Current Visit: Yes Status: Acute Priority: High (2) Mood disorder Current Visit: Yes Status: Acute Priority: High (3) Anxiety disorder Current Visit: Yes Status: Acute Priority: High (4) Cannabis use disorder Current Visit: Yes Status: Acute Priority: Medium Hospital Course: Admission HPI: Admission note was completed by Dr. Etienne "This is a psychiatric assessment on Elio Torres who is a 38-year-old male with history of depressive disorder Patient reports that he has issues with chronic anxiety and that recently his PCP started him on Wellbutrin which given a bad reaction he states that he became very agitated and anxious and suicidal He says that he has thoughts of wanting to hang himself Patient had a similar episode where he wanted to hang himself about 2 years ago Patient did not reveal the any other triggers but the staff reports that the patient had admitted that he had a argument with his ex- regarding visitations with her 3 children over the holidays which triggered his current episode Patient reports that he has chronic issues with anxiety and that his current medications does not seem to hold them well He also takes Zoloft 100 mg a day He says that he smokes cannabis on a daily basis but otherwise denies use any other drugs He also stated that he takes Xanax 0.25 mg when necessary 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 He states that there is a family history of anxiety Past history personal and social history Patient remains somewhat vague and not very forthcoming As mentioned above the patient has been before and has 3 children from his previous relationship His current also has 2 children one of whom still lives in their house Patient reports that he has history children visit him over the holidays and weekends He reports that he has had some therapy in the past but has not followed up consistently He denies seeing a psychiatrist in the past" Hospital course: Upon admission to the unit patient was directable and agreeable to commence treatment and signed adult voluntary form. Patient got along well with other patients on the unit and followed unit protocol. Patient was compliant with the medications and denied any side effects throughout hospital course. Patient was started on Zoloft increased to a dose of 200 mg daily at bedtime for mood/anxiety, trazodone 20 mg daily at bedtime for sleep/mood, Vistaril when necessary for anxiety. Patient spoke of his stressors and engaged in therapy both group and individual. Patient was also seen by medical team for history an d physical exam. Throughout the course of the hospitalization patient gradually improved with regards to mood, anxiety, sleep and became more future oriented with improved insight and judgment. On the day of discharge patient denied any suicidal or homicidal ideations intent or plan denied any auditory or visual hallucinations. Patient endorsed wanting to live for his health and family. The patient denied any access to guns or weapons. Patient denied any paranoia and did not endorse any delusions. Patient does have a significant history of substance abuse and was counseled on abstaining from all substances including alcohol and marijuana. Patient elected to do outpatient substance use treatment program through [facility]. Patient was also counseled on the medications and need for regular compliance and was encouraged to follow-up with their outpatient appointment for mental health and also for primary care. Prior to discharge a family meeting will be arranged by social studies teacher to answer any questions and ensure safety upon discharge. Mental status exam: General Appearance: Patient appears to be thin, wearing glasses, stated age is alert, pleasant, and cooperative. Patient is in no acute distress and has improved hygiene and grooming Behavior: Patient is calmly seated without any agitated behavior. Speech: Patient's speech is fluent and nonpressured. Mood/Affect: Patient reports their mood is "good", affect is congruent and euthymic. Suicidality/Homicidality: Patient denies having any suicidal or homicidal ideation intent or plan. Perceptions: Patient denies any auditory or visual hallucinations. Though content/process: There is no evidence of any delusional thought content and thought process is linear and goal-directed. Memory and concentration: AOX3, grossly intact for the purposes of this session. Can spell "WORLD" backwards correctly. Judgment and insight: improved with guarded prognosis Impression: Adjustment disorder with mixed emotional features Mood disorder unspecified Anxiety disorder unspecified Cannabis use disorder unspecified Plan: -Continue with discharge today as patient has improved and stabilized psychiatrically and is not currently an imminent threat to himself and/or others. -Continue medications: Trazodone 200 mg daily at bedtime for sleep/anxiety, Zoloft 200 mg daily at bedtime for mood/anxiety, Vistaril 50 mg daily daily when necessary for anxiety. -Patient was counseled on the need for medication compliance and appropriate follow-up at mental health and also primary care for medical issues. Patient verbalized understanding and agreed. -Social work to arrange for and conduct family meeting to ensure safety upon discharge and answer any questions/concerns. Social work also to arrange for patients follow up appointments for psychiatric care along with follow up with primary care provider. -Patient counseled on abstaining from recreational drugs and marijuana and alcohol. Was informed/educated on the adverse effects on their physical and mental health. Patient verbally agreed and understood. -Patient was instructed to return to the hospital or seek immediate medical care if their psychiatric or medical symptoms do worsen or reoccur. Allergies Allergy/AdvReac Type Severity Reaction Status Date / Time amoxicillin Allergy Rash/Hives Verified 09/27/23 12:08 bupropion From Wellbutrin AdvReac increased Verified 09/27/23 12:08 anxiety & suicidal ideations. Laboratory Results WBC 13.2 k/uL (3.8-10.6) H 09/27/23 11:40 RBC 5.88 m/uL (4.30-5.90) 09/27/23 11:40 Hgb 17.8 gm/dL (13.0-17.5) H 09/27/23 11:40 Hct 51.6 % (39.0-53.0) 09/27/23 11:40 MCV 87.8 fL (80.0-100.0) 09/27/23 11:40 MCH 30.4 pg (25.0-35.0) 09/27/23 11:40 MCHC 34.6 g/dL (31.0-37.0) 09/27/23 11:40 RDW 12.1 % (11.5-15.5) 09/27/23 11:40 Plt Count 409 k/uL (150-450) 09/27/23 11:40 MPV 6.9 09/27/23 11:40 Neutrophils % 84 % 09/27/23 11:40 Lymphocytes % 9 % 09/27/23 11:40 Monocytes % 5 % 09/27/23 11:40 Eosinophils % 0 % 09/27/23 11:40 Basophils % 1 % 09/27/23 11:40 Neutrophils # 11.1 k/uL (1.3-7.7) H 09/27/23 11:40 Lymphocytes # 1.1 k/uL (1.0-4.8) 09/27/23 11:40 Monocytes # 0.7 k/uL (0-1.0) 09/27/23 11:40 Eosinophils # 0.1 k/uL (0-0.7) 09/27/23 11:40 Basophils # 0.1 k/uL (0-0.2) 09/27/23 11:40 Sodium 141 mmol/L (137-145) 09/27/23 11:40 Potassium 4.1 mmol/L (3.5-5.1) 09/27/23 11:40 Chloride 102 mmol/L (98-107) 09/27/23 11:40 Carbon Dioxide 17 mmol/L (22-30) L 09/27/23 11:40 Anion Gap 22 mmol/L 09/27/23 11:40 BUN 15 mg/dL (9-20) 09/27/23 11:40 Creatinine 0.86 mg/dL (0.66-1.25) 09/27/23 11:40 Est GFR (CKD-EPI)AfAm >90 (>60 ml/min/1.73 sqM) 09/27/23 11:40 Est GFR (CKD-EPI)NonAf >90 (>60 ml/min/1.73 sqM) 09/27/23 11:40 Glucose 91 mg/dL (74-99) 09/27/23 11:[address] Glu mg/dL 111 mg/dL 09/27/23 11:40 Hemoglobin A1c 5.5 % (<=6.0) 09/27/23 11:40 Calcium 10.1 mg/dL (8.4-10.2) 09/27/23 11:40 TSH 0.338 mIU/L (0.465-4.680) L 09/27/23 11:40 Free T4 2.98 ng/dL (0.78-2.19) H 09/29/23 11:40 Urine Color Yellow 09/27/23 15:51 Urine Appearance Clear (Clear) 09/27/23 15:51 Urine pH 5.5 (5.0-8.0) 09/27/23 15:51 Ur Specific [place] 1.042 (1.001-1.035) H 09/27/23 15:51 Urine Protein 1+ (Negative) H 09/27/23 15:51 Urine Glucose (UA) Negative (Negative) 09/27/23 15:51 Urine Ketones 4+ (Negative) H 09/27/23 15:51 Urine Blood Negative (Negative) 09/27/23 15:51 Urine Nitrite Negative (Negative) 09/27/23 15:51 Urine Bilirubin Negative (Negative) 09/27/23 15:51 Urine Urobilinogen <2.0 mg/dL (<2.0) 09/27/23 15:51 Ur Leukocyte Esterase Negative (Negative) 09/27/23 15:51 Urine RBC 1 /hpf (0-5) 09/27/23 15:51 Urine WBC 3 /hpf (0-5) 09/27/23 15:51 Uric Acid Crystals Few /hpf (None) H 09/27/23 15:51 Urine Mucus Many /hpf (None) H 09/27/23 15:51 Urine Opiates Screen Not Detected (NotDetected) 09/27/23 13:28 Ur Oxycodone Screen Not Detected (NotDetected) 09/27/23 13:28 Urine Methadone Screen Not Detected (NotDetected) 09/27/23 13:28 Ur Barbiturates Screen Not Detected (NotDetected) 09/27/23 13:28 U Tricyclic Antidepress Not Detected (NotDetected) 09/27/23 13:28 Ur Phencyclidine Scrn Not Detected (NotDetected) 09/27/23 13:28 Ur Amphetamines Screen Not Detected (NotDetected) 09/27/23 13:28 U Methamphetamines Scrn Not Detected (NotDetected) 09/27/23 13:28 U Benzodiazepines Scrn Not Detected (NotDetected) 09/27/23 13:28 Urine Cocaine Screen Not Detected (NotDetected) 09/27/23 13:28 U Marijuana (THC) Screen Detected (NotDetected) H 09/27/23 13:28 Influenza Type A (PCR) Not Detected (Not Detectd) 09/27/23 07:39 Influenza Type B (PCR) Not Detected (Not Detectd) 09/27/23 07:39 RSV (PCR) Not Detected (Not Detectd) 09/27/23 07:39 SARS-CoV-2 (PCR) Not Detected (Not Detectd) 10/02/23 18:06 Vital Signs Temp 97.1 F L 10/03/23 07:03 Pulse 80 10/03/23 09:44 Resp 16 10/03/23 09:44 BP 129/91 10/03/23 08:45 Pulse Ox 97 10/03/23 09:44 FiO2 Patient Condition at Discharge: Stable Plan - Discharge Summary Discharge Rx Participant: Yes New Discharge Prescriptions: New traZODone HCL 200 mg PO HS 30 Days #60 tablet Albuterol Inhaler [Ventolin Hfa Inhaler] 1 puff INHALATION RT-TID PRN each PRN Reason: Shortness Of Breath Or Wheezing atenoloL [Tenormin] 25 mg PO DAILY 30 Days #30 tab hydrOXYzine pamoate [Vistaril] 25 mg PO DAILY PRN 30 Days #60 cap PRN Reason: Anxiety Sertraline [Zoloft] 200 mg PO HS 30 Days #60 tab Discontinued traZODone HCL 150 mg PO HS Sertraline [Zoloft] 50 mg PO HS Sertraline [Zoloft] 100 mg PO HS ALPRAZolam [Xanax] 0.25 mg PO TID PRN PRN Reason: Anxiety Discharge Medication List Albuterol Inhaler [Ventolin Hfa Inhaler] 1 puff INHALATION RT-TID PRN each 10/03/23 [Rx] Sertraline [Zoloft] 200 mg PO HS 30 Days #60 tab 10/03/23 [Rx] atenoloL [Tenormin] 25 mg PO DAILY 30 Days #30 tab 10/03/23 [Rx] hydrOXYzine pamoate [Vistaril] 25 mg PO DAILY PRN 30 Days #60 cap 10/03/23 [Rx] traZODone HCL 200 mg PO HS 30 Days #60 tablet 10/03/23 [Rx] Follow up Appointment(s)/Referral(s): Suleiman Santana MD [Primary Care Provider] - 1-2 days Activity/Diet/Wound Care/Special Instructions: Avoid the use of street drugs and alcohol. Take all medications as prescribed. When you are in need of refills on your medications, please contact your medical provider and/or outpatient psychiatrist/provider to have this done. Please go to your scheduled outpatient appointment for aftercare treatment. If symptoms return or become worse, call the crisis line at and/or go to the nearest emergency room for evaluation. National Suicide Hotline 988. Special Instructions: It appears you have hyperthyroidism. This diagnosis should be confirmed with repeat labs. You need repeat thyroid labs in a few weeks with your primary care provider. (no vitamins or supplements for 72 hours before labs) You would benefit from a thyroid ultrasound. Discharge Disposition: HOME SELF-CARE
[2023-10-03] MEDS: LORazepam 1 MG TAB PO PRN (12:50)
== END 2023-10-03 17:19 | disposition home or self-care (01) | DRG 882 ==
LOC: EC 06:35 → 3MHU 15:01
PROVIDERS: ADMIT Psychiatry & Neurology Psychiatry; ATTEND Psychiatry & Neurology Psychiatry
DX: F43.25 Adjustment disorder with mixed disturbance of emotions and conduct (principal); R45.851 Suicidal ideations; J45.909 Unspecified asthma, uncomplicated; R11.2 Nausea with vomiting, unspecified; Z11.52 Encounter for screening for COVID-19; J45.20 Mild intermittent asthma, uncomplicated; Z79.899 Other long term (current) drug therapy; Z81.8 Family history of other mental and behavioral disorders; R45.1 Restlessness and agitation; F12.10 Cannabis abuse, uncomplicated; Z71.51 Drug abuse counseling and surveillance of drug abuser; Z71.89 Other specified counseling; Z88.0 Allergy status to penicillin
CPT/HCPCS: 36415; 80048; 80306; 81001; 82075; 83036; 84439; 84443; 85025; 87635; 87636; 93005; 96374; 96375; 99285

== ENCOUNTER 2024-08-23 10:18 | Emergency (ER) | payer MEDICAID, OTHER ==
[2024-08-23 10:25] VITALS: TEMP 97.9
[2024-08-23 10:55] LABS: Basophils % (A) 0 %; Eosinophils % (A) 1 %; HCT 45.6 % (39.0-53.0); Lymphocytes # (A) 0.9 k/uL (1.0-4.8); Lymphocytes % (A) 11 %; MCH 29.5 pg (25.0-35.0); MCV 89.5 fL (80.0-100.0); Mean Platelet Volume 6.8; Monocytes # (A) 0.3 k/uL (0-1.0); Monocytes % (A) 3 %; Neutrophils # (A) 6.9 k/uL (1.3-7.7); Neutrophils % (A) 84 %; Platelet Count 340 k/uL (150-450); RBC 5.09 m/uL (4.30-5.90); RDW 12.4 % (11.5-15.5); WBC 8.2 k/uL (3.8-10.6)
[2024-08-23 11:06] LABS: Partial Thromboplastin Time 26.8 sec (22.0-30.0); Prothrombin Time 10.8 sec (10.0-12.5)
[2024-08-23 11:11] LABS: ALT 20 U/L (4-49); AST 21 U/L (17-59); African American GFR (CKD) >90 (>60 ml/min/1.73 sqM); Albumin 4.7 g/dL (3.5-5.0); Alkaline Phosphatase 69 U/L (38-126); Anion Gap 8 mmol/L; Blood Urea Nitrogen 12 mg/dL (9-20); Calcium 9.6 mg/dL (8.4-10.2); Carbon Dioxide 24 mmol/L (22-30); Chloride 107 mmol/L (98-107); Glucose 106 mg/dL (74-99); Non-African American GFR(CKD) >90 (>60 ml/min/1.73 sqM); Potassium 4.2 mmol/L (3.5-5.1); Sodium 139 mmol/L (137-145); Total Bilirubin 0.5 mg/dL (0.2-1.3); Total Protein 7.4 g/dL (6.3-8.2)
--- NOTE | 2024-08-23 11:46 | XR ---
EXAMINATION TYPE: XR chest 2V DATE OF EXAM: 08/23/2024 11:29 AM COMPARISON: None CLINICAL INDICATION: Male, 39 years old with history of Pain; TECHNIQUE: XR chest 2V Frontal and lateral views of the chest. FINDINGS: Lungs/Pleura: There is no evidence of pleural effusion, focal consolidation, or pneumothorax. Pulmonary vascularity: Unremarkable. Heart/mediastinum: Cardiomediastinal silhouette is unremarkable. Musculoskeletal: No acute osseous pathology. IMPRESSION: No acute cardiopulmonary disease/process. [facility], , 08/23/2024 11:44 AM
--- NOTE | 2024-08-23 12:07 | ED ---
Anxiety HPI - General Chief Complaint: Anxiety Stated Complaint: tachy,light headed Time Seen by Provider: 08/23/24 11:09 Source: patient, RN notes reviewed Mode of arrival: ambulatory - History of Present Illness Initial Comments: This is a 39-year-old male with history of anxiety presenting with elevated heart rate and tremors since this morning. Patient states his heart rate has been in the 100s to 120s has been unable to stop shaking. Patient denies any recent new life stressors. Endorses use of sertraline, trazodone and Abilify which he has been taking. Endorses recently running out of Ativan last week and has not yet picked up his new prescription at the pharmacy. Patient denies fever, chills, chest pain, dyspnea, abdominal pain, N/V/D, dizziness. MD Complaint: anxiety, heart racing Onset/Timin -: hour(s) Symptoms: palpitations Previous History of Same: Yes Severity: severe Quality: constant Provoking factors: none known Improves With: nothing Worsens With: nothing Associated symptoms: palpitations - Related Data Home Medications: Previous Rx's Medication Instructions Recorded Albuterol Inhaler [Ventolin Hfa 1 puff INHALATION RT-TID PRN each 10/03/23 Inhaler] Sertraline [Zoloft] 200 mg PO HS 30 Days #60 tab 10/03/23 atenoloL [Tenormin] 25 mg PO DAILY 30 Days #30 tab 10/03/23 hydrOXYzine pamoate [Vistaril] 25 mg PO DAILY PRN 30 Days #60 cap 10/03/23 traZODone HCL 200 mg PO HS 30 Days #60 tablet 10/03/23 Allergies/Adverse Reactions: Allergies Allergy/AdvReac Type Severity Reaction Status Date / Time amoxicillin Allergy Rash/Hives Verified 08/23/24 10:25 bupropion [From Wellbutrin] AdvReac increased Verified 08/23/24 10:25 anxiety & suicidal ideations. Review of Systems ROS Statement: Those systems with pertinent positive or pertinent negative responses have been documented in the HPI. ROS Other: All systems not noted in ROS Statement are negative. Past Medical History Past Medical History: Asthma History of Any Multi-Drug Resistant Organisms: None Reported Additional Past Surgical History / Comment(s): left knee surgery Past Anesthesia/Blood Transfusion Reactions: No Reported Reaction Past Psychological History: Anxiety, Depression Smoking Status: Never smoker Past Alcohol Use History: None Reported Past Drug Use History: Marijuana General Exam Limitations: no limitations General appearance: alert, anxious (Visible hand tremors noted) Head exam: Present: atraumatic, normocephalic, normal inspection Eye exam: Present: normal appearance, PERRL, EOMI. Absent: scleral icterus, conjunctival injection, periorbital swelling ENT exam: Present: normal exam, mucous membranes moist Neck exam: Present: normal inspection. Absent: tenderness, meningismus, lymphadenopathy Respiratory exam: Present: normal lung sounds bilaterally. Absent: respiratory distress, wheezes, rales, rhonchi, stridor Cardiovascular Exam: Present: regular rate, normal rhythm, normal heart sounds. Absent: systolic murmur, diastolic murmur, rubs, gallop, clicks GI/Abdominal exam: Present: soft, normal bowel sounds. Absent: distended, tenderness, guarding, rebound, rigid Extremities exam: Present: normal inspection, full ROM, normal capillary refill. Absent: tenderness, pedal edema, joint swelling, calf tenderness Back exam: Present: normal inspection Neurological exam: Present: alert, oriented X3, CN II-XII intact Psychiatric exam: Present: normal affect, normal mood Skin exam: Present: warm, dry, intact, normal color. Absent: rash Course Vital Signs 08/23/24 08/23/24 10:23 13:41 Temperature 97.9 F Pulse Rate 89 104 H Respiratory 20 18 Rate Blood Pressure 129/86 126/87 O2 Sat by Pulse 99 97 Oximetry Medical Decision Making - Medical Decision Making Was pt. sent in by a medical professional or institution ([facility], [facility], urgent care, hospital, or senior living...) When possible be specific @ -No Did you speak to anyone other than the patient for history (EMS, parent, family, police, friend...)? What history was obtained from this source @ -No Did you review nursing and triage notes (agree or disagree)? Why? @ -I reviewed and agree with nursing and triage notes Were old charts reviewed (outside hosp., previous admission, EMS record, old EKG, old radiological studies, urgent care reports/EKG's, senior living records)? Report findings @ -No old charts were reviewed Differential Diagnosis (chest pain, altered mental status, abdominal pain women, abdominal pain men, vaginal bleeding, weakness, fever, dyspnea, syncope, headache, dizziness, GI bleed, back pain, seizure, CVA, palpatations, mental health, musculoskeletal)? @ -Differential Chest Pain: Stable Angina, Unstable Angina, STEMI, NSTEMI Aortic Dissection, Pneumothorax, Musculoskeletal, Esophageal Spasm GERD, Cholecystitis, Pancreatitis, Zoster, this is not meant to be an all-inclusive list. EKG interpreted by me (3pts min.). @ -Sinus rhythm with sinus arrhythmia. No ST changes or T wave inversion. Ventricular rate 81 bpm, ANA ROSA 176 ms, QRS duration 84 ms, QTc 371 ms. X-rays interpreted by me (1pt min.). @ -Chest x-ray reveals no cardiomegaly, focal infiltrates, pulmonary edema or pneumothorax CT interpreted by me (1pt min.). @ -None done U/S interpreted by me (1pt. min.). @ -None done What testing was considered but not performed or refused? (CT, X-rays, U/S, labs)? Why? @ -None What meds were considered but not given or refused? Why? @ -None Did you discuss the management of the patient with other professionals (professionals i.e. , PA, CPHT, lab, RT, psych nurse, social sciences instructor, composite laminator, teacher, business development officer, case supervisor)? Give summary @ -No Was smoking cessation discussed for >3mins.? @ -No Was critical care preformed (if so, how long)? @ -No Were there social determinants of health that impacted care today? How? (Homelessness, low income, unemployed, alcoholism, drug addiction, transportation, low edu. Level, literacy, decrease access to med. care, nursing home, rehab)? @ -No Was there de-escalation of care discussed even if they declined (Discuss DNR or withdrawal of care, Hospice)? DNR status @ -No What co-morbidities impacted this encounter? (DM, HTN, Smoking, COPD, CAD, Cancer, CVA, ARF, Chemo, Hep., AIDS, mental health diagnosis, sleep apnea, morbid obesity)? @ -None Was patient admitted / discharged? Hospital course, mention meds given and route, prescriptions, significant lab abnormalities, going to OR and other pertinent info. @ -Lab work including troponin is unremarkable. Chest x-ray and EKG are also unremarkable. Patient provided 1 mg IV Ativan and repeated 1 hour later when he noted ongoing anxiety and tremors. Advised follow-up with PCP/psychiatry for ongoing anxiety control. Undiagnosed new problem with uncertain prognosis? @ -No Drug Therapy requiring intensive monitoring for toxicity (Heparin, Nitro, Insulin, Cardizem)? @ -No Were any procedures done? @ -No Diagnosis/symptom? @ -Anxiety, panic attack Acute, or Chronic, or Acute on Chronic? @ -Acute Uncomplicated (without systemic symptoms) or Complicated (systemic symptoms)? @ -Uncomplicated Side effects of treatment? @ -No Exacerbation, Progression, or Severe Exacerbation? @ -No Poses a threat to life or bodily function? How? (Chest pain, USA, LA, pneumonia, PE, COPD, DKA, ARF, appy, cholecystitis, CVA, Diverticulitis, Homicidal, Suicidal, threat to staff... and all critical care pts) @ -No - Lab Data Result diagrams: 08/23/24 10:44 08/23/24 10:44 Lab Results 08/23/24 08/23/24 08/23/24 Range/Units 10:44 10:44 10:44 WBC 8.2 (3.8-10.6) k/uL RBC 5.09 (4.30-5.90) m/uL Hgb 15.0 (13.0-17.5) gm/dL Hct 45.6 (39.0-53.0) % MCV 89.5 (80.0-100.0) fL MCH 29.5 (25.0-35.0) pg MCHC 33.0 (31.0-37.0) g/dL RDW 12.4 (11.5-15.5) % Plt Count 340 (150-450) k/uL MPV 6.8 Neutrophils % 84 % Lymphocytes % 11 % Monocytes % 3 % Eosinophils % 1 % Basophils % 0 % Neutrophils # 6.9 (1.3-7.7) k/uL Lymphocytes # 0.9 L (1.0-4.8) k/uL Monocytes # 0.3 (0-1.0) k/uL Eosinophils # 0.0 (0-0.7) k/uL Basophils # 0.0 (0-0.2) k/uL PT 10.8 (10.0-12.5) sec INR 1.0 (<1.2) APTT 26.8 (22.0-30.0) sec Sodium 139 (137-145) mmol/L Potassium 4.2 (3.5-5.1) mmol/L Chloride 107 (98-107) mmol/L Carbon Dioxide 24 (22-30) mmol/L Anion Gap 8 mmol/L BUN 12 (9-20) mg/dL Creatinine 0.81 (0.66-1.25) mg/dL Est GFR (CKD-EPI)AfAm >90 (>60 ml/min/1.73 sqM) Est GFR (CKD-EPI)NonAf >90 (>60 ml/min/1.73 sqM) Glucose 106 H (74-99) mg/dL Calcium 9.6 (8.4-10.2) mg/dL Magnesium 2.0 (1.6-2.3) mg/dL Total Bilirubin 0.5 (0.2-1.3) mg/dL AST 21 (17-59) U/L ALT 20 (4-49) U/L Alkaline Phosphatase 69 (38-126) U/L Troponin I (0.000-0.034) ng/mL Total Protein 7.4 (6.3-8.2) g/dL Albumin 4.7 (3.5-5.0) g/dL 08/23/24 Range/Units 10:44 WBC (3.8-10.6) k/uL RBC (4.30-5.90) m/uL Hgb (13.0-17.5) gm/dL Hct (39.0-53.0) % MCV (80.0-100.0) fL MCH (25.0-35.0) pg MCHC (31.0-37.0) g/dL RDW (11.5-15.5) % Plt Count (150-450) k/uL MPV Neutrophils % % Lymphocytes % % Monocytes % % Eosinophils % % Basophils % % Neutrophils # (1.3-7.7) k/uL Lymphocytes # (1.0-4.8) k/uL Monocytes # (0-1.0) k/uL Eosinophils # (0-0.7) k/uL Basophils # (0-0.2) k/uL PT (10.0-12.5) sec INR (<1.2) APTT (22.0-30.0) sec Sodium (137-145) mmol/L Potassium (3.5-5.1) mmol/L Chloride (98-107) mmol/L Carbon Dioxide (22-30) mmol/L Anion Gap mmol/L BUN (9-20) mg/dL Creatinine (0.66-1.25) mg/dL Est GFR (CKD-EPI)AfAm (>60 ml/min/1.73 sqM) Est GFR (CKD-EPI)NonAf (>60 ml/min/1.73 sqM) Glucose (74-99) mg/dL Calcium (8.4-10.2) mg/dL Magnesium (1.6-2.3) mg/dL Total Bilirubin (0.2-1.3) mg/dL AST (17-59) U/L ALT (4-49) U/L Alkaline Phosphatase (38-126) U/L Troponin I <0.012 (0.000-0.034) ng/mL Total Protein (6.3-8.2) g/dL Albumin (3.5-5.0) g/dL Disposition Clinical Impression: Acute anxiety, Panic attack Disposition: HOME SELF-CARE Instructions (If sedation given, give patient instructions): Generalized Anxiety Disorder (ED), Panic Attack (ED) Is patient prescribed a controlled substance at d/c from ED?: No Referrals: Suleiman Santana MD [Primary Care Provider] - 1-2 days Time of Disposition: 12:54
[2024-08-23] MEDS: LORazepam 2 MG/ML INJ IV STA ×2 (12:25→13:01)
[2024-08-23 13:46] VITALS: BP 126/87; PULSE 104; RESP 18
== END 2024-08-23 13:49 | disposition home or self-care (01) ==
LOC: EC 10:18
DX: F41.0 Panic disorder [episodic paroxysmal anxiety] (principal); Z88.0 Allergy status to penicillin; Z88.8 Allergy status to other drugs, medicaments and biological substances
CPT/HCPCS: 36415; 80053; 83735; 84484; 85025; 85610; 85730; 71046; 99284; 96374; 96376; J2060